=== PATIENT | female | born 1980 | race Caucasian/White ===

== ENCOUNTER 2019-04-06 09:13 | Emergency (ER) | payer SELFPAY ==
[~2019-04-06] VITALS: Ht 162.6 cm; Wt 101.6 kg
[2019-04-06 09:20] VITALS: BP 133/83
--- NOTE | 2019-04-06 09:21 | NUR ---
PATIENT AMBULATED TO BED 3
--- NOTE | 2019-04-06 09:33 | NUR ---
BIB SELF c/o NAUSEA & RUQ ABD PAIN RADIATING TO R BACK X 8 DAYS. LAST BM 3 DAYS AGO. occasional burning sensation, denies hematuria. hx---anxiety, cholelithiasis. ABD SOFT. PATIENT STATES PAIN OF 5/10 AT THIS TIME; VSS; PATIENT POSITIONED FOR COMFORT; HOB ELEVATED; BEDRAILS UP X2; BED DOWN. ER MD MADE AWARE OF PT STATUS.
[2019-04-06 12:34] VITALS: BP 115/68
--- NOTE | 2019-04-06 12:34 | NUR ---
Patient discharged with v/s stable. Written and verbal after care instructions given and explained. Patient alert, oriented and verbalized understanding of instructions. Ambulatory with steady gait. All questions addressed prior to discharge. ID band removed. Patient advised to follow up with PMD. Rx of MACROBID & PYREDIUM given. Patient educated on indication of medication including possible reaction and side effects. Opportunity to ask questions provided and answered.
[2019-04-06 14:31] LABS: APPEARANCE,URINE CLEAR (CLEAR); BILIRUBIN,URINE NEGATIVE (NEGATIVE); BLOOD, URINE 3+ (NEGATIVE); COLOR,URINE YELLOW (YELLOW); LEUKOCYTE ESTERASE ,URINE NEGATIVE (NEGATIVE); NITRITE, URINE NEGATIVE (NEGATIVE); UGLUCOSE NEGATIVE (NEGATIVE)
[2019-04-06 14:40] LABS: RBC,URINE 20-50 /HPF (0-5); WBC,URINE NONE SEEN /HPF (0-5)
== END 2019-04-06 12:34 | disposition home or self-care (01) ==
LOC: MED 09:13
DX: N39.0 Urinary tract infection, site not specified (principal); J45.909 Unspecified asthma, uncomplicated; F41.9 Anxiety disorder, unspecified; Z88.5 Allergy status to narcotic agent
CPT/HCPCS: 81001; 81025; 99283

== ENCOUNTER 2020-01-04 15:42 | Inpatient (IN) | payer MEDICAID ==
[~2020-01-04] VITALS: Ht 160 cm; Wt 101.6 kg
[2020-01-04 15:52] VITALS: BP 136/89
--- NOTE | 2020-01-04 16:23 | NUR ---
39 yo female c/o intermittent burning pain x >1 wk with nausea and worsening heartburn also increasing anxiety with pain; "concerned she is going to and has 3 young daughters". hx---dm, anxiety rx---
[2020-01-04] MEDS ORDERED: NACL 0.9% 500 ML IV ONE (16:28)
[2020-01-04] MEDS ORDERED: ONDANSETRON 4 MG/2 ML VIAL IVP ONE (16:30)
[2020-01-04] MEDS ORDERED: KETOROLAC 30 MG/ML VIAL IVP ONE (16:30)
[2020-01-04 17:02] LABS: BASOPHILS # (AUTO) 0.1 K/uL (0.00-0.22); EOSINOPHILS # (AUTO) 0.1 K/uL (0-0.4); EOSINOPHILS % (AUTO) 1.6 % (0.0-4.0); HEMATOCRIT 40.7 % (36-48); HEMOGLOBIN 13.1 g/dL (12.0-16.0); LYMPHOCYTES # (AUTO) 1.8 K/uL (2.5-16.5); LYMPHOCYTES % (AUTO) 26.5 % (20.5-51.1); MEAN CORPUSCULAR HEMOGLOBIN 29 pg (27-31); MEAN CORPUSCULAR HGB CONC 32 g/dL (33-37); MEAN CORPUSCULAR VOLUME 91.4 fL (80-94); MONOCYTES # (AUTO) 0.6 K/uL (0.8-1.0); MONOCYTES % (AUTO) 8.5 % (1.7-9.3); NEUTROPHILS # (AUTO) 4.3 K/uL (1.8-7.7); NEUTROPHILS % (AUTO) 62.4 % (42.2-75.2); PLATELET COUNT (AUTO) 250 K/uL (140-450); RED BLOOD CELL COUNT(AUTO) 4.45 MIL/uL (4.20-5.40); RED CELL DISTRIBUTION WIDTH 14.2 % (11.6-13.7); WHITE BLOOD COUNT (AUTO) 6.8 K/uL (4.8-10.8)
[2020-01-04 17:18] LABS: ALBUMIN 3.9 g/dL (3.4-5.0); ANION GAP 11.7 (8-16); CARBON DIOXIDE 29.3 mmol/L (21-32); CREATININE 0.8 mg/dL (0.6-1.3); TOTAL BILIRUBIN 0.2 mg/dL (0.0-1.0)
--- NOTE | 2020-01-04 18:49 | NUR ---
hidascan to be done today. pt needs to be npo and no meds given until after the scan.
--- NOTE | 2020-01-04 18:50 | NUR ---
pt resting in bed. pain is 2/10, no nausea at this time.
--- NOTE | 2020-01-04 19:08 | NUR ---
RECIVED REPORT FROM STANTON TURK. CONTINUATION OF CARE.
[2020-01-04] MEDS ORDERED: LORazepam 2 MG/ML VIAL IM/IVP PRN (19:25)
[2020-01-04] MEDS ORDERED: ACETAMINOPHEN 325 MG TAB PO PRN (19:25)
[2020-01-04] MEDS ORDERED: ONDANSETRON 4 MG/2 ML VIAL IM/IVP PRN (19:25)
[2020-01-04] MEDS ORDERED: FAMOTIDINE 20 MG/2 ML VIAL IV PRN (19:25)
[2020-01-04] MEDS ORDERED: DOCUSATE SODIUM 100 MG GELCAP PO PRN (19:25)
--- NOTE | 2020-01-04 20:05 | NUR ---
LAB AT BEDSIDE DRAWING BLOOD.
[2020-01-04 20:12] LABS: CHOL/HDL RATIO 4.2 (1-4.5); FREE T4 (FREE THYROXINE) 1.17 ng/dL (0.76-1.46); MAGNESIUM 2.2 mg/dL (1.8-2.4); PHOSPHORUS 4.2 mg/dL (2.5-4.9); THYROID STIMULATING HORMONE 1.86 uIU/mL (0.34-3.74)
--- NOTE | 2020-01-04 20:12 | NUR ---
XRAY AT BEDSIDE.
--- NOTE | 2020-01-04 20:22 | NUR ---
LAB AT BEDSIDE.
--- NOTE | 2020-01-04 20:40 | NUR ---
Patient will be admitted to care of . Will be admited to TELE. Will go to room 104B. Belongings list completed. Report given to Yu RN via phone. PER TECH HIDA SCAN CAN TAKE UP TO 1-3 HRS AND PT WILL BE TAKEN TO BED 104B AFTER SCAN.
--- NOTE | 2020-01-04 20:40 | NUR ---
PT TAKEN FOR HIDA SCAN VIA W/C.
[2020-01-04] MEDS ORDERED: KETOROLAC 30 MG/ML VIAL IVP PRN (20:51)
[2020-01-04 21:14] LABS: PROTHROMBIN TIME 9.9 secs (10.8-13.4)
[2020-01-04] MEDS ORDERED: INSULIN LISPRO SLIDING SCALE 100 UNITS/ML VIAL SUBQ PRN (21:35)
[2020-01-04] MEDS ORDERED: GLUCAGON 1 MG VIAL IVP PRN (21:35)
[2020-01-04] MEDS ORDERED: DEXTROSE 50% 50 ML SYR IVP PRN (21:35)
[2020-01-04] MEDS: ATORVASTATIN 20 MG TAB PO SCH ×2 (22:00→23:46)
[2020-01-04 23:00] VITALS: BP 119/57
--- NOTE | 2020-01-04 23:00 | NUR ---
ADMITTED A 39F FROM ER. MED SURG PT. AWAKE.ALERT AND ORIENTED X4. AMBULATORY. CAME BY JESSICA DUE TO ABDOMINAL MERCY AND N/V SECONDARY TO ACUTE CHOLECYSTITIS. DENIES PAIN AT THIS TIME. WITH HL ON THE LT AC G#20. CLEAR AND PATENT. ORIENTED TO HOSPITAL ROUTINES. INSTRUCTED NPO . VERBALIZED UNDERSTANDING. PLAN OF CARE DISCUSSED. BED ON LOW POSITION, CALL LIGHT WITHIN EASY REACH. WILL FOLLOW UP ADMIT ORDERS.
[2020-01-04] MEDS ORDERED: cefTRIAXone 1,000 MG VIAL ONE (23:31)
[2020-01-04] MEDS: DEXT 5% / NACL 0.9% 500 ML IV SCH (23:45)
[2020-01-04] MEDS: BLOOD GLUCOSE MONITORING 1 DEV DEV FS SCH (23:56)
--- NOTE | 2020-01-04 23:56 | NUR ---
ROCEPHIN IV STARTED. BLOOD SUGAR WAS CHECKED RESULT 118. NO INSULIN NEEDED.
--- NOTE | 2020-01-05 00:30 | NUR ---
MADE ROUNDS. PT ASLEEP. NO S/S OF ANY PAIN NOTED.
--- NOTE | 2020-01-05 02:30 | NUR ---
UP TO BATHROOM . VOIDED. NO C/O ANY PAIN . WILL CONTINUE TO MONITOR.
--- NOTE | 2020-01-05 04:30 | NUR ---
MADE ROUNDS.PT SLEEPING . NO DISCOMFORT NOR PAIN NOTED.
--- NOTE | 2020-01-05 05:08 | NUR ---
DR. MEADOWS,RESIDENT MADE AWARE OF THE RESULT ON HIDA SCAN.
[2020-01-05] MEDS: DEXT 5% / NACL 0.9% 500 ML IV SCH (06:15)
[2020-01-05 07:19] LABS: BASOPHILS % (AUTO) 0.5 % (0.0-2.0); EOSINOPHILS # (AUTO) 0.1 K/uL (0-0.4); EOSINOPHILS % (AUTO) 1.1 % (0.0-4.0); HEMATOCRIT 39.3 % (36-48); HEMOGLOBIN 12.8 g/dL (12.0-16.0); LYMPHOCYTES # (AUTO) 1.9 K/uL (2.5-16.5); LYMPHOCYTES % (AUTO) 32.3 % (20.5-51.1); MEAN CORPUSCULAR HEMOGLOBIN 30 pg (27-31); MEAN CORPUSCULAR HGB CONC 33 g/dL (33-37); MEAN CORPUSCULAR VOLUME 91.2 fL (80-94); MONOCYTES # (AUTO) 0.4 K/uL (0.8-1.0); MONOCYTES % (AUTO) 6.9 % (1.7-9.3); NEUTROPHILS # (AUTO) 3.5 K/uL (1.8-7.7); NEUTROPHILS % (AUTO) 59.2 % (42.2-75.2); PLATELET COUNT (AUTO) 236 K/uL (140-450); RED CELL DISTRIBUTION WIDTH 14.2 % (11.6-13.7)
--- NOTE | 2020-01-05 07:30 | NUR ---
RECEIVED PT AAOX4. NO SOB NOTED. NO C/O PAIN AT THIS TIME. IV TO LAC PATENT AND INTACT. CHEST CLEAR. ABDOMEN SOFT, BOWEL SOUNDS PRESENT. NO EDEMA NOTED. NPO MAINTAINED FOR PLANNED PROCEDURE. INSTRUCTED PT TO CALL FOR ASSISTANCE, CALL LIGHT WITHIN REACH, VERBALIZED UNDERSTANDING.
--- NOTE | 2020-01-05 07:30 | NUR ---
ENDORSED TO AM NURSE IN STABLE CONDITION.
[2020-01-05 07:52] LABS: MAGNESIUM 2.3 mg/dL (1.8-2.4); PHOSPHORUS 3.4 mg/dL (2.5-4.9)
[2020-01-05 07:53] LABS: ANION GAP 11.8 (8-16); CARBON DIOXIDE 27.1 mmol/L (21-32); CREATININE 0.7 mg/dL (0.6-1.3); POTASSIUM 3.9 mmol/L (3.5-5.1)
[2020-01-05 08:00] VITALS: BP 122/74
[2020-01-05] MEDS: BLOOD GLUCOSE MONITORING 1 DEV DEV FS SCH ×4 (08:02→21:28)
--- NOTE | 2020-01-05 08:07 | NUR ---
PATIENT HAS BEEN SCREENED AND CATEGORIZED HIGH NUTRITION RISK. PATIENT WILL BE SEEN WITHIN 1-2 DAYS OF ADMISSION. 01/05/20 01/06/[address]
[2020-01-05] MEDS ORDERED: DEXT 5% /NACL 0.9% 1,000 ML IV SCH (08:16)
[2020-01-05] MEDS ORDERED: PARoxetine 20 MG TAB PO SCH (09:00)
[2020-01-05] MEDS: LACTOBACILLUS RHAMNOSUS GG 1 EACH CAP PO SCH (09:10)
--- NOTE | 2020-01-05 09:15 | NUR ---
PT RESTING. NO COMPLAINTS MADE.NO SOB NOTED.
--- NOTE | 2020-01-05 10:55 | NUR ---
PT WAS COMPLAINING OF BEING ANXIOUS DUE TO WHAT HAPPENED EARLIER TO THE PREVIOUS PT NEXT TO HER BED. ATIVAN IV GIVEN PRN. WILL CONTINUE TO MONITOR.
--- NOTE | 2020-01-05 11:45 | NUR ---
PT SEEN BY DR. CERVANTES WITH NEW ORDERS. ENDORSED CARE TO SMILEY FOR CONTINUITY OF CARE.
--- NOTE | 2020-01-05 12:00 | NUR ---
RECEIVED BEDSIDE REPORT FROM CHARGE NURSE MELISA. . PT RESTING IN BED. RESPIRATIONS EVEN AND UNLABORED WITH NO SOB OR RESPIRATORY DISTRESS. SKIN WARM AND DRY TO TOUCH. IV SITE IN R HAND 22G IS CLEAN, DRY, AND INTACT. SAFETY MEASURES IN PLACE. WILL CONTINUE TO MONITOR
--- NOTE | 2020-01-05 12:15 | NUR ---
PT SIGNED CONSENT FOR SURGERY TODAY WITH DR. CERVANTES AT BEDSIDE. HEAD SWAMPER PHONE USED FOR CONSENT. HEAD SWAMPER ID [id number]. SAFETY MEASURES IN PLACE. WILL CONTINUE TO MONITOR
--- NOTE | 2020-01-05 12:57 | NUR ---
SURGERY AT BEDSIDE TO TAKE PATIENT TO OR. PREOP CHECKLIST IS COMPLETE. SAFETY MEASURES IN PLACE. WILL CONTINUE TO MONITOR
[2020-01-05] MEDS: BUPIVACAINE-MPF 0.5% 30 ML VIAL INJ ONE ×2 (13:21→15:29)
[2020-01-05] MEDS ORDERED: ONDANSETRON 4 MG/2 ML VIAL ONE (13:48)
[2020-01-05] MEDS ORDERED: DEXAMETHASONE 4 MG/ML VIAL ONE (13:48)
[2020-01-05] MEDS ORDERED: SEVOFLURANE 250 ML BTL INH ONE (13:48)
[2020-01-05] MEDS ORDERED: ROCURONIUM 50 MG/5 ML VIAL IV ONE (13:48)
[2020-01-05] MEDS ORDERED: NEOSTIGMINE 1:1000 10 MG/10 ML VIAL ONE (13:48)
[2020-01-05] MEDS ORDERED: fentaNYL 0.05 MG/ML VIAL ONE (13:48)
[2020-01-05] MEDS ORDERED: GLYCOPYRROLATE 0.2 MG/ML VIAL ONE (13:48)
[2020-01-05] MEDS ORDERED: PROPOFOL 200 MG/20 ML VIAL IV ONE (13:48)
[2020-01-05] MEDS: DEXT 5% / NACL 0.45% 1,000 ML IV SCH (15:15)
--- NOTE | 2020-01-05 15:30 | NUR ---
CALLED OR TO SEE HOW PT IS DOING. OR SAID THAT SHE SHOULD RETURN TO THE FLOOR IN ABOUT 45MIN. WILL CONTINUE TO MONITOR
[2020-01-05] MEDS: HYDROmorphone PFS 2 MG/ML SYR ONE ×2 (15:45→15:57)
[2020-01-05] MEDS ORDERED: HYDROmorphone 1 MG/ML AMP IVP PRN (15:45)
[2020-01-05 16:00] VITALS: BP 153/89
--- NOTE | 2020-01-05 16:20 | NUR ---
PT RETURNED BACK FROM OR. REPORT GIVEN AT BEDSIDE. PT HAS 4 LAPAROSCOPIC INCISIONS. PT TOLERATED WELL. POST OP VITALS HAVE BEEN STARTED. PT 02 AT 87-88% ON ROOM AIR. 2L NC PLACED ON PT. MD AWARE. SAFETY MEASURES IN PLACE. WILL CONTINUE TO MONITOR
--- NOTE | 2020-01-05 17:58 | NUR ---
PT CALLED AND COMPLAINED OF SEVERE PAIN. PRN PAIN MEDICATION ADMINISTERED PRESCRIBED PER MD ORDER. PT TOLERATED WELL. MEDICATION EDUCATION PERFORMED. PT VERBALIZED UNDERSTANDING. SAFETY MEASURES IN PLACE. WILL CONTINUE TO MONITOR
--- NOTE | 2020-01-05 18:15 | NUR ---
PT RESTING IN BED. ABLE TO MAKE NEEDS KNOWN. RESPIRATIONS EVEN AND UNLABORED WITH NO SOB OR RESPIRATORY DISTRESS. SKIN WARM AND DRY TO TOUCH. SAFETY MEASURES IN PLACE. WILL CONTINUE TO MONITOR
--- NOTE | 2020-01-05 19:20 | NUR ---
ENDORSED AT BEDSIDE TO NIGHTSHIFT NURSE FOR CONTINUITY OF CARE. PT IS STABLE
--- NOTE | 2020-01-05 19:26 | NUR ---
ENDORSED AT BEDSIDE TO NIGHTSHIFT NURSE FOR CONTINUITY OF CARE. PT IS STABLE
--- NOTE | 2020-01-05 19:27 | NUR ---
RECD. RESTING IN BED, AWAKE, A/OX4. RESPIRATION EVEN AND UNLABORED. IV OF D51/2 NS INFUSING AT 100 ML/HR, LEFT AC G20. INCISION IN THE ABDOMEN (4) WITH DERMA REYES, OPEN TO AIR, ALL DRY AND INTACT. TOLERATING CLEAR LIQUID DIET. PAIN IN THE ABDOMEN 07/26, STATED TOLERABLE. PLAN OF CARE FOR THE SHIFT DISCUSSED. VERBALIZED UNDERSTANDING.
[2020-01-05 20:00] VITALS: BP 121/76
[2020-01-05] MEDS: IBUPROFEN 600 MG TAB PO PRN (21:23)
[2020-01-05] MEDS: ATORVASTATIN 20 MG TAB PO SCH (21:23)
--- NOTE | 2020-01-05 21:30 | NUR ---
SPOKE WITH JANUSZ WATKINS LVN AND REVIEWED PATIENT'S CARE PLAN
--- NOTE | 2020-01-05 22:25 | NUR ---
NAUSEATED, MEDICATED WITH ZOFRAN 4 MG. IVP BY ROSALEE DELANEY.
--- NOTE | 2020-01-05 22:55 | NUR ---
NO NAUSEA NOTED, RESTING COMFORTABLY IN BED.
--- NOTE | 2020-01-06 | NUR ---
SLEEPING COMFORTABLY IN BED.
[2020-01-06] MEDS: DEXT 5% / NACL 0.45% 1,000 ML IV SCH (01:15)
[2020-01-06] MEDS ORDERED: LIDOCAINE VISCOUS 2% 20 ML UDC PO PRN (02:00)
[2020-01-06] MEDS ORDERED: ALUMINUM HYD/MAG/SIMETHICONE 30 ML UDC PO PRN (02:00)
[2020-01-06] MEDS ORDERED: DICYCLOMINE 10 MG CAP PO ONE (02:00)
--- NOTE | 2020-01-06 02:35 | NUR ---
COMPLAINT OF HYPERACIDITY, MEDICATED WITH BENTYL PO PER MD ORDER.
--- NOTE | 2020-01-06 03:35 | NUR ---
RESTING IN BED, DENIES FEELINGS OF ACIDITY IN THE ABDOMEN AND EPIGASTRIC AREA.
[2020-01-06] MEDS: IBUPROFEN 600 MG TAB PO PRN (05:56)
[2020-01-06] MEDS: BLOOD GLUCOSE MONITORING 1 DEV DEV FS SCH (05:56)
--- NOTE | 2020-01-06 07:00 | NUR ---
PASSING GAS, NO BM YET. ENCOURAGED TO AMBULATE MORE. CONDITION REMAIN STABLE. WILL ENDORSE TO AM SHIFT NURSE FOR CONTINUITY OF CARE.
[2020-01-06 07:20] LABS: BASOPHILS % (AUTO) 0.1 % (0.0-2.0); HEMATOCRIT 38.1 % (36-48); HEMOGLOBIN 12.5 g/dL (12.0-16.0); LYMPHOCYTES # (AUTO) 1.1 K/uL (2.5-16.5); LYMPHOCYTES % (AUTO) 12.6 % (20.5-51.1); MEAN CORPUSCULAR HEMOGLOBIN 30 pg (27-31); MEAN CORPUSCULAR HGB CONC 33 g/dL (33-37); MEAN CORPUSCULAR VOLUME 90.6 fL (80-94); MONOCYTES # (AUTO) 0.6 K/uL (0.8-1.0); MONOCYTES % (AUTO) 7.3 % (1.7-9.3); NEUTROPHILS # (AUTO) 6.9 K/uL (1.8-7.7); PLATELET COUNT (AUTO) 245 K/uL (140-450); RED BLOOD CELL COUNT(AUTO) 4.21 MIL/uL (4.20-5.40); WHITE BLOOD COUNT (AUTO) 8.6 K/uL (4.8-10.8)
[2020-01-06 07:33] LABS: ALBUMIN 3.5 g/dL (3.4-5.0); ANION GAP 13.8 (8-16); CARBON DIOXIDE 25.2 mmol/L (21-32); CREATININE 0.7 mg/dL (0.6-1.3); TOTAL BILIRUBIN 0.4 mg/dL (0.0-1.0)
[2020-01-06] MEDS ORDERED: IBUP-2213 PO (09:04)
[2020-01-06 09:09] VITALS: BP 111/69
[2020-01-06] MEDS ORDERED: PAX20 PO (09:10)
[2020-01-06] MEDS ORDERED: NACL 0.9% 1,000 ML IV SCH (09:10)
[2020-01-06] MEDS: LACTOBACILLUS RHAMNOSUS GG 1 EACH CAP PO SCH (09:33)
--- NOTE | 2020-01-06 09:34 | NUR ---
RECEIVED PATIENT REPORT FROM JANUSZ MARIE. PATIENT IS AAO, STATES "SORENESS" AT OPS, NOTED SURGICAL INCISIONS HEALING WITH DERMABOND, OPS ARE C/D/I. IVF'S INFUSING WELL ON THE LEFT AC. PATIENT HAS NO S/S OF ACUTE DISTRESS NOTED. SHE AMB TO THE RR WITHOUT ASSISTANCE. SHE IS PASSING GAS AND ABLE TO VOID. MEDICATIONS WERE GIVEN ORDERED AND PATIENT HAD NO DIFFICULTY SWALLOWING. SHE IS SITTING ON THE SIDE OF THE BED AND RESTING COMFORTABLY. THE BED IS LOWERED WITH CALL LIGHT WITHIN REACH.
--- NOTE | 2020-01-06 10:15 | NUR ---
PHYSICAL THERAPY IS AMB PATIENT
[2020-01-06 10:47] VITALS: BP 111/69
--- NOTE | 2020-01-06 11:15 | NUR ---
GAVE REPORT TO LUISANA TURK, PATIENT ENDORSED IN STABLE CONDITION
--- NOTE | 2020-01-06 11:56 | NUR ---
PICKED UP BY VIA PRIVATE CAR, PATIENT ALERT, AWAKE, ORIENTED, SKIN WARM, TO TOUCH RESP. EVEN AND UNLABORED, WATER GIVEN TO PATIENT, INCENTIVE SPIROMETER GIVEN TO PATIENT, PATIENT AWARE NEED TO FOLLOW WITH DR CERVANTES AND PRIMARY MD, PATIENT AGREED TO FOLLOW UP WITH MD, ABDOMEN SOFT NON DISTENDED, SCARS INTACT NO BLEEDING NOTED, REMOVED IVLOCK, PATIENT ABLE TO AMBULATE FROM WHEELCHAIR TO CAR.
== END 2020-01-06 12:01 | disposition home or self-care (01) | DRG 263 ==
LOC: MED 15:42 → MTU 18:11
PROVIDERS: ADMIT General Practice; ATTEND General Practice
PROC: 0FT44ZZ Resection of Gallbladder, Percutaneous Endoscopic Approach (ICD-10-PCS; principal; 2020-01-05 13:00)
DX: K80.00 Calculus of gallbladder with acute cholecystitis without obstruction (principal); K76.0 Fatty (change of) liver, not elsewhere classified; K82.1 Hydrops of gallbladder; E66.01 Morbid (severe) obesity due to excess calories; E11.9 Type 2 diabetes mellitus without complications; Z88.5 Allergy status to narcotic agent; J45.909 Unspecified asthma, uncomplicated; F32.9 Major depressive disorder, single episode, unspecified; F41.1 Generalized anxiety disorder; E78.5 Hyperlipidemia, unspecified; Z68.39 Body mass index [BMI] 39.0-39.9, adult
CPT/HCPCS: 36415; 47500; 71045; 76705; 78445; 80048; 80053; 81025; 82140; 82150; 82948; 83036; 83605; 83615; 83690; 83735; 83880; 84100; 84439; 84443; 85025; 85610; 85730; 86886; 86900; 86901; 87081; 93970; 96361; 96374; 96375; 97116; 97161-GP; 99285; J0696; J1100; J1170; J1885; J2060; J2405; J2704; J2710; J3010; J3490; J7030; J7042; J7060; Q0092

== ENCOUNTER 2021-04-03 00:29 | Emergency (ER) | payer MEDICAID ==
[~2021-04-03] VITALS: Ht 157.5 cm; Wt 100.0 kg
[~2021-04-03 00:29] MED LIST: IBUP-2213 PO; PAX20 PO
[2021-04-03 00:56] VITALS: BP 150/89
--- NOTE | 2021-04-03 00:59 | NUR ---
TO LOBBY A/W BED AMBULATORY
[2021-04-03 01:58] LABS: APPEARANCE,URINE SL CLOUDY (CLEAR); BILIRUBIN,URINE NEGATIVE (NEGATIVE); BLOOD, URINE 3+ (NEGATIVE); LEUKOCYTE ESTERASE ,URINE TRACE (NEGATIVE); NITRITE, URINE NEGATIVE (NEGATIVE); PH,URINE 6.5 (5.0-9.0); UGLUCOSE NEGATIVE (NEGATIVE)
[2021-04-03 02:06] LABS: COLOR,URINE SLIGHT BLOODY (YELLOW)
[2021-04-03 02:10] LABS: RBC,URINE TOO NUMEROUS TO COUN /HPF (0-5); WBC,URINE 0-5 /HPF (0-5)
[2021-04-03 03:14] LABS: BASOPHILS # (AUTO) 0.2 K/uL (0.00-0.22); BASOPHILS % (AUTO) 1.7 % (0.0-2.0); EOSINOPHILS # (AUTO) 0.1 K/uL (0-0.4); EOSINOPHILS % (AUTO) 1.4 % (0.0-4.0); HEMATOCRIT 37.5 % (36-48); HEMOGLOBIN 12.3 g/dL (12.0-16.0); LYMPHOCYTES % (AUTO) 10.6 % (20.5-51.1); MEAN CORPUSCULAR HEMOGLOBIN 29 pg (27-31); MEAN CORPUSCULAR HGB CONC 33 g/dL (33-37); MEAN CORPUSCULAR VOLUME 87.1 fL (80-94); MONOCYTES # (AUTO) 0.4 K/uL (0.8-1.0); MONOCYTES % (AUTO) 4.4 % (1.7-9.3); NEUTROPHILS # (AUTO) 7.7 K/uL (1.8-7.7); NEUTROPHILS % (AUTO) 81.9 % (42.2-75.2); PLATELET COUNT (AUTO) 216 K/uL (140-450); RED BLOOD CELL COUNT(AUTO) 4.31 MIL/uL (4.20-5.40); RED CELL DISTRIBUTION WIDTH 14.5 % (11.6-13.7); WHITE BLOOD COUNT (AUTO) 9.3 K/uL (4.8-10.8)
--- NOTE | 2021-04-03 03:18 | NUR ---
SEEN AND EXAMINED BY CONOR WITH ORDERS, CARRIED OUT
[2021-04-03] MEDS ORDERED: DICYCLOMINE 10 MG CAP PO ONE (03:20)
[2021-04-03] MEDS ORDERED: ALUMINUM HYD/MAG/SIMETHICONE 30 ML UDC PO ONE (03:20)
[2021-04-03] MEDS ORDERED: KETOROLAC 30 MG/ML VIAL IVP ONE (03:20)
[2021-04-03 03:36] LABS: ANION GAP 15.4 (8-16); CARBON DIOXIDE 25.5 mmol/L (21-32); CREATININE 0.7 mg/dL (0.6-1.3); POTASSIUM 3.9 mmol/L (3.5-5.1); TOTAL BILIRUBIN 0.4 mg/dL (0.0-1.0)
--- NOTE | 2021-04-03 04:00 | NUR ---
MEDICATED PER ERMDS ORDER, TOLERATED WELL.
[2021-04-03] MEDS ORDERED: SUCR1TAB35 PO (05:34)
[2021-04-03 05:39] VITALS: BP 150/89
--- NOTE | 2021-04-03 05:40 | NUR ---
Patient discharged with v/s stable. Written and verbal after care instructions given and explained. Patient verbalized understanding. Ambulatory with steady gait. All questions addressed prior to discharge. Advised to follow up with PMD.
== END 2021-04-03 05:40 | disposition home or self-care (01) ==
LOC: MED 00:29
DX: R10.10 Upper abdominal pain, unspecified (principal); R03.0 Elevated blood-pressure reading, without diagnosis of hypertension; R11.0 Nausea; J45.909 Unspecified asthma, uncomplicated; I10 Essential (primary) hypertension; Z88.5 Allergy status to narcotic agent; Z79.899 Other long term (current) drug therapy
CPT/HCPCS: 36415; 80053; 81001; 83690; 84702; 85025; 96374; 99283; J1885

== ENCOUNTER 2022-12-11 16:23 | Emergency (ER) | payer MEDICAID ==
[~2022-12-11] VITALS: Ht 165.1 cm; Wt 112.5 kg
[~2022-12-11 16:23] MED LIST changes: +SUCR1TAB35 PO
[2022-12-11 16:29] VITALS: BP 138/72
--- NOTE | 2022-12-11 16:41 | NUR ---
X-Ray at bedside.
[2022-12-11 17:14] LABS: BASOPHILS % (AUTO) 0.1 % (0.0-2.0); EOSINOPHILS # (AUTO) 0.1 K/uL (0-0.4); EOSINOPHILS % (AUTO) 1.4 % (0.0-4.0); HEMOGLOBIN 10.7 g/dL (12.0-16.0); LYMPHOCYTES # (AUTO) 2.5 K/uL (2.5-16.5); LYMPHOCYTES % (AUTO) 34.8 % (20.5-51.1); MEAN CORPUSCULAR HEMOGLOBIN 25 pg (27-31); MEAN CORPUSCULAR HGB CONC 31 g/dL (33-37); MEAN CORPUSCULAR VOLUME 79.6 fL (80-94); MONOCYTES # (AUTO) 0.5 K/uL (0.8-1.0); MONOCYTES % (AUTO) 6.9 % (1.7-9.3); NEUTROPHILS % (AUTO) 56.8 % (42.2-75.2); PLATELET COUNT (AUTO) 305 K/uL (140-450); RED BLOOD CELL COUNT(AUTO) 4.27 MIL/uL (4.20-5.40); RED CELL DISTRIBUTION WIDTH 15.6 % (11.6-13.7); WHITE BLOOD COUNT (AUTO) 7.1 K/uL (4.8-10.8)
[2022-12-11 17:34] LABS: ALBUMIN 3.8 g/dL (3.4-5.0); ANION GAP 12.3 (8-16); CARBON DIOXIDE 29.5 mmol/L (21-32); CREATININE 0.9 mg/dL (0.6-1.3); POTASSIUM 3.8 mmol/L (3.5-5.1); TOTAL BILIRUBIN 0.2 mg/dL (0.0-1.0)
[2022-12-11] MEDS ORDERED: ALBUTEROL SULFATE/IPRATROPIU 3 ML SOL IH ONE (17:35)
--- NOTE | 2022-12-11 17:42 | NUR ---
[facility] THERAPY AND RESPIRATORY DRUG GIVEN ORDERED; LATERAL RIGHT AND LEFT NECK AUSCULTATION; GOOD AERATION NO EVIDENCE OF UPPER AIRWAY WHEEZE
[2022-12-11] MEDS ORDERED: ALBU0.0912 INH (18:34)
[2022-12-11] MEDS ORDERED: hydrOXYzine PAMOATE 25 MG CAP PO ONE (18:40)
[2022-12-11 19:15] VITALS: BP 132/74
--- NOTE | 2022-12-11 19:15 | NUR ---
Patient discharged with v/s stable. Written and verbal after care instructions given and explained. Patient verbalized understanding. Ambulatory with steady gait. Accompanied by family member. All questions addressed prior to discharge. Advised to follow up with PMD.
== END 2022-12-11 19:15 | disposition home or self-care (01) ==
LOC: MED 16:23
DX: T17.228A Food in pharynx causing other injury, initial encounter (principal); F41.9 Anxiety disorder, unspecified; E11.9 Type 2 diabetes mellitus without complications; J45.909 Unspecified asthma, uncomplicated; Z88.5 Allergy status to narcotic agent; Z79.4 Long term (current) use of insulin; Z79.899 Other long term (current) drug therapy; X58.XXXA Exposure to other specified factors, initial encounter; Y93.89 Activity, other specified; Y92.89 Other specified places as the place of occurrence of the external cause; Y99.8 Other external cause status
CPT/HCPCS: 36415; 70360; 70490; 71046; 80053; 85025; 94640; 99284; Q0177

== ENCOUNTER 2023-04-06 15:41 | Emergency (ER) | payer MEDICAID ==
[~2023-04-06] VITALS: Ht 160 cm; Wt 104.3 kg
[~2023-04-06 15:41] MED LIST changes: +ALBU0.0912 INH
[2023-04-06 15:58] VITALS: BP 133/86; PULSE 103; RESP 18; TEMP 99; O2SAT 100
[2023-04-06 16:39] VITALS: O2SAT 100
[2023-04-06] MEDS ORDERED: KETOROLAC 60 MG/2 ML VIAL IM ONE (16:40)
[2023-04-06] MEDS ORDERED: IBUP-2213 PO (16:43)
== END 2023-04-06 17:00 | disposition home or self-care (01) ==
LOC: MED 15:41
DX: R07.89 Other chest pain (principal); M25.512 Pain in left shoulder; R11.2 Nausea with vomiting, unspecified; J45.909 Unspecified asthma, uncomplicated; E11.9 Type 2 diabetes mellitus without complications; Z90.49 Acquired absence of other specified parts of digestive tract; Z98.890 Other specified postprocedural states; Z79.899 Other long term (current) drug therapy; Z88.5 Allergy status to narcotic agent
CPT/HCPCS: 96372; 99283; J1885

== ENCOUNTER 2023-04-23 20:02 | Emergency (ER) | payer MEDICAID ==
[~2023-04-23] VITALS: Ht 162.6 cm; Wt 102.1 kg
[2023-04-23 20:17] VITALS: BP 122/107; PULSE 98; RESP 20; TEMP 97.4; O2SAT 98
[2023-04-23] MEDS ORDERED: ACETAMINOPHEN 325 MG TAB PO ONE (23:30)
[2023-04-23] MEDS ORDERED: ALUMINUM HYD/MAG/SIMETHICONE 30 ML UDC PO ONE (23:30)
[2023-04-23] MEDS ORDERED: ONDANSETRON 4 MG/5 ML ORASYR PO ONE (23:30)
[2023-04-23 23:49] LABS: BASOPHILS % (AUTO) 0.3 % (0.0-2.0); EOSINOPHILS # (AUTO) 0.1 K/uL (0-0.4); EOSINOPHILS % (AUTO) 0.6 % (0.0-4.0); HEMATOCRIT 34.2 % (36-48); HEMOGLOBIN 10.9 g/dL (12.0-16.0); LYMPHOCYTES # (AUTO) 2.4 K/uL (2.5-16.5); LYMPHOCYTES % (AUTO) 24.4 % (20.5-51.1); MEAN CORPUSCULAR HEMOGLOBIN 25 pg (27-31); MEAN CORPUSCULAR HGB CONC 32 g/dL (33-37); MEAN CORPUSCULAR VOLUME 78.6 fL (80-94); MONOCYTES # (AUTO) 0.6 K/uL (0.8-1.0); MONOCYTES % (AUTO) 6.4 % (1.7-9.3); NEUTROPHILS # (AUTO) 6.7 K/uL (1.8-7.7); NEUTROPHILS % (AUTO) 68.3 % (42.2-75.2); PLATELET COUNT (AUTO) 266 K/uL (140-450); RED BLOOD CELL COUNT(AUTO) 4.35 MIL/uL (4.20-5.40); RED CELL DISTRIBUTION WIDTH 16.4 % (11.6-13.7); WHITE BLOOD COUNT (AUTO) 9.8 K/uL (4.8-10.8)
[2023-04-24 00:10] LABS: ALANINE AMINOTRANSFERASE 65 U/L (12-78); ALBUMIN 3.9 g/dL (3.4-5.0); ALKALINE PHOSPHATASE 122 U/L (50-136); ANION GAP 10.4 (8-16); ASPARTATE AMINOTRANSFERASE 27 U/L (15-37); CALCIUM 9.5 mg/dL (8.5-10.1); CHLORIDE 101 mmol/L (98-107); CREATININE 0.8 mg/dL (0.6-1.3); GFR ARICAN-AMERICAN 101 mL/min (>90); GFR NON ARICAN-AMERICAN 84 mL/min (>90); GLUCOSE 178 mg/dL (74-106); LIPASE 20 U/L (16-77); POTASSIUM 3.4 mmol/L (3.5-5.1); SODIUM SERUM 136 mmol/L (136-145); TOTAL BILIRUBIN 0.2 mg/dL (0.0-1.0); TOTAL PROTEIN, SERUM 8.5 g/dL (6.4-8.2); UREA NITROGEN, BLOOD 11 mg/dL (7-18)
[2023-04-24] MEDS ORDERED: OMEP40EC24 PO (00:28)
[2023-04-24] MEDS ORDERED: SUCR1TAB56 PO (00:28)
[2023-04-24] MEDS ORDERED: ONDA-188 SL (00:28)
[2023-04-24 00:44] VITALS: BP 122/107; PULSE 98; RESP 20; TEMP 97.4; O2SAT 98
== END 2023-04-24 00:44 | disposition home or self-care (01) ==
LOC: MED 20:02
DX: R10.13 Epigastric pain (principal); R11.2 Nausea with vomiting, unspecified; J45.909 Unspecified asthma, uncomplicated; E11.9 Type 2 diabetes mellitus without complications; Z90.49 Acquired absence of other specified parts of digestive tract; Z79.899 Other long term (current) drug therapy; Z79.1 Long term (current) use of non-steroidal anti-inflammatories (NSAID); Z88.5 Allergy status to narcotic agent
CPT/HCPCS: 36415; 71045; 80053; 81025; 83690; 84484; 85025; 93005; 99285; Q0092; Q0162

== ENCOUNTER 2023-05-01 18:58 | Emergency (ER) | payer MEDICAID ==
[~2023-05-01] VITALS: Ht 157.5 cm; Wt 104.3 kg
[~2023-05-01 18:58] MED LIST changes: +OMEP40EC24 PO; +ONDA-188 SL; +SUCR1TAB56 PO
[2023-05-01 20:07] VITALS: BP_SYST 140; BP_SYST 145; BP_DIAS 82; BP_DIAS 98; PULSE 140; PULSE 82; RESP 20; TEMP 98; O2SAT 98
[2023-05-02] MEDS ORDERED: DICYCLOMINE HCL LIQUID 20 MG, ALUMINUM HYD/MAG/SIMETHICONE 30 ML, LIDOCAINE VISCOUS 2% ... PO ONE ×3 (00:50)
[2023-05-02] MEDS ORDERED: ALUMINUM HYD/MAG/SIMETHICONE 30 ML UDC ONE (01:02)
[2023-05-02] MEDS ORDERED: DICYCLOMINE HCL LIQUID 10 MG/5 ML UDC ONE (01:02)
[2023-05-02] MEDS ORDERED: PRON INH (01:03)
[2023-05-02] MEDS ORDERED: OMEP40EC24 PO (01:03)
[2023-05-02 01:58] VITALS: BP 145/82; PULSE 82; RESP 20; TEMP 98; O2SAT 98
== END 2023-05-02 01:58 | disposition home or self-care (01) ==
LOC: MED 18:58
DX: R10.13 Epigastric pain (principal); J45.909 Unspecified asthma, uncomplicated; E11.9 Type 2 diabetes mellitus without complications; Z79.4 Long term (current) use of insulin; Z79.899 Other long term (current) drug therapy
CPT/HCPCS: 99283

== ENCOUNTER 2023-07-02 12:22 | Emergency (ER) | payer MEDICAID ==
[~2023-07-02] VITALS: Ht 157.7 cm; Wt 101.6 kg
[~2023-07-02 12:22] MED LIST changes: +PRON INH
[2023-07-02 12:58] VITALS: BP 122/82; PULSE 94; RESP 18; TEMP 99.7; O2SAT 99
[2023-07-02] MEDS ORDERED: IBUPROFEN 600 MG TAB PO ONE (13:10)
[2023-07-02] MEDS ORDERED: KETOROLAC 30 MG/ML VIAL IM ONE (13:15)
[2023-07-02] MEDS ORDERED: NAPR-1704 PO (14:02)
[2023-07-02] MEDS ORDERED: ACET-10509 PO (14:02)
[2023-07-02 15:52] VITALS: BP 122/82; PULSE 94; RESP 18; TEMP 99.7; O2SAT 99
== END 2023-07-02 15:53 | disposition home or self-care (01) ==
LOC: MED 12:22
DX: S82.402A Unspecified fracture of shaft of left fibula, initial encounter for closed fracture (principal); J45.909 Unspecified asthma, uncomplicated; E11.9 Type 2 diabetes mellitus without complications; E78.5 Hyperlipidemia, unspecified; Z98.890 Other specified postprocedural states; Z79.899 Other long term (current) drug therapy; Z79.1 Long term (current) use of non-steroidal anti-inflammatories (NSAID); Z88.5 Allergy status to narcotic agent; X58.XXXA Exposure to other specified factors, initial encounter; Y92.89 Other specified places as the place of occurrence of the external cause; Y93.89 Activity, other specified; Y99.8 Other external cause status
CPT/HCPCS: 29515; 73610; 96372; 99283; J1885